=== PATIENT | female | born 1955 ===

== ENCOUNTER 2019-04-26 14:31 | Inpatient (IN) | payer BC ==
[2019-04-26] MEDS ORDERED: Sodium Chloride 0.9% 1,000 ML IV ONE (14:53)
[2019-04-26] MEDS ORDERED: Sodium Chloride 0.9% 10 ML Syringe FLUSH PRN (14:53)
[2019-04-26] MEDS ORDERED: Sodium Chloride 0.9% 2.5 ML Syringe FLUSH PRN (14:53)
[2019-04-26 15:47] LABS: BLOOD UREA NITROGEN,BUN 16 mg/dL (7.0-18.0); CARBON DIOXIDE,CO2 29.5 mmol/L (21.0-32.0); CHLORIDE,CL 98 mmol/L (98-107); GLUCOSE RANDOM 104 mg/dL (74-106); LIPASE 88 U/L (73-393); POTASSIUM,K 3.1 mmol/L (3.5-5.1); SODIUM,NA 137 mmol/L (136-145)
--- NOTE | 2019-04-26 16:10 | EDM.PDOC ---
ED HPI GENERAL MEDICAL PROBLEM - General Chief Complaint: Abdominal Pain Stated Complaint: ABDOMINAL PAIN Time Seen by Provider: 04/26/19 14:52 Source of Information: Reports: Patient History Limitations: Reports: No Limitations - History of Present Illness Onset Date: 04/20/19 Duration: Getting Worse Location: Reports: Abdomen Quality: Reports: Ache, Dull Severity: Moderate Improves with: Reports: None Worsens with: Reports: Eating Associated Symptoms: Reports: Loss of Appetite, Malaise, Nausea/Vomiting. Denies: Fever/Chills - Related Data Allergies Allergy/AdvReac Type Severity Reaction Status Date / Time metals Allergy Rash Uncoded 04/26/19 14:42 Home Meds: Home Meds Aspirin 1 tab PO DAILY 04/26/19 [History] Clobetasol [Clobetasol 0.05%] 1 dose TOP ASDIRECTED PRN 04/26/19 [History] Losartan/Hydrochlorothiazide [Losartan-HCTZ 50-12.5 MG] 1 tab PO DAILY 04/26/19 [History] Meloxicam 1 tab PO DAILY 04/26/19 [History] Rosuvastatin [Crestor] 10 mg PO DAILY 04/26/19 [History] cloNIDine HCl [Catapres] 1 tab PO BID 04/26/19 [History] Past Medical History Musculoskeletal History: Reports: Arthritis Neurological History: Reports: CVA Other Neuro History: TIA x9. head bleed - Infectious Disease History Infectious Disease History: Reports: Chicken Pox - Past Surgical History Cardiovascular Surgical History: Reports: Other (See Below) Other Cardiovascular Surgeries/Procedures: carotid cleanout Neurological Surgical History: Reports: C-Spine ED ROS GENERAL - Review of Systems Review Of Systems: See Below Constitutional: Reports: Chills, Decreased Appetite. Denies: Fever, Weakness Respiratory: Reports: No Symptoms Cardiovascular: Reports: No Symptoms Endocrine: Reports: No Symptoms GI/Abdominal: Reports: Abdominal Pain, Diarrhea, Decreased Appetite, Nausea. Denies: Black Stool, Bloody Stool, Vomiting : Reports: No Symptoms Musculoskeletal: Reports: No Symptoms Skin: Reports: No Symptoms. Denies: Jaundice Neurological: Reports: No Symptoms Psychiatric: Reports: No Symptoms ED EXAM, GI/ABD - Physical Exam Exam: See Below Text/Narrative:: Exam: See Below Exam Limited By: No Limitations Head: Atraumatic Neck: Normal Inspection. No: Carotid Bruit, Lymphadenopathy (R) Respiratory/Chest: No Respiratory Distress, Lungs Clear, Normal Breath Sounds, No Accessory Muscle Use. No: Chest Non-Tender Cardiovascular: Normal Peripheral Pulses, Regular Rate, Rhythm, No Edema, No JVD GI/Abdominal: Normal Bowel Sounds, patient is currently nontender without masses. No guarding or rebound appreciated. Back Exam: Normal Inspection. No: CVA Tenderness (R) Extremities: Normal Inspection. No: No Pedal Edema Neurological: Alert, Oriented, Normal Cognition Psychiatric: Normal Affect Skin Exam: Warm Lymphatic: No Adenopathy Course - Vital Signs Last Recorded V/S: Last Vital Signs Temp 35.7 C 04/26/19 14:36 Pulse 109 H 04/26/19 14:36 Resp 16 04/26/19 14:36 BP 147/79 H 04/26/19 14:36 Pulse Ox 99 04/26/19 14:36 - Orders/Labs/Meds Orders: Active Orders 24 hr Category Date Time Status Piperacillin/Tazobactam [Piperacil-Tazobact] 3.375 gm Med 04/26/19 17:02 Active Sodium Chloride 0.9% [Normal Saline] 50 ml IV ONETIME Sodium Chloride 0.9% [Normal Saline] 1,000 ml Med 04/26/19 16:15 Active IV ASDIRECTED Sodium Chloride 0.9% [Saline Flush] Med 04/26/19 14:53 Active 10 ml FLUSH ASDIRECTED PRN Sodium Chloride 0.9% [Saline Flush] Med 04/26/19 14:53 Active 2.5 ml FLUSH ASDIRECTED PRN Saline Lock Insert [OM.PC] Stat Oth 04/26/19 14:53 Ordered Medication Orders Sodium Chloride (Normal Saline) 1,000 mls @ 500 mls/hr IV ASDIRECTED SHADI Piperacillin Sod/Tazobactam (Sod 3.375 gm/ Sodium Chloride) 50 mls @ 100 mls/ hr IV ONETIME ONE Stop: 04/26/19 17:31 Sodium Chloride (Saline Flush) 10 ml FLUSH ASDIRECTED PRN PRN Reason: Keep Vein Open Sodium Chloride (Saline Flush) 2.5 ml FLUSH ASDIRECTED PRN PRN Reason: Keep Vein Open Labs: Laboratory Tests 04/26/19 04/26/19 04/26/19 Range/Units 15:00 15:15 15:15 WBC 20.21 H (4.0-11.0) K/uL RBC 5.07 (4.30-5.90) M/uL Hgb 16.6 H (12.0-16.0) g/dL Hct 47.5 H (36.0-46.0) % MCV 93.7 (80.0-98.0) fL MCH 32.7 H (27.0-32.0) pg MCHC 34.9 (31.0-37.0) g/dL RDW Std Deviation 45.2 (28.0-62.0) fl RDW Coeff of [place] 13 (11.0-15.0) % Plt Count 226 (150-400) K/uL MPV 11.00 (7.40-12.00) fL Neut % (Auto) 83.2 H (48.0-80.0) % Lymph % (Auto) 9.9 L (16.0-40.0) % [place] % (Auto) 6.2 (0.0-15.0) % Eos % (Auto) 0.6 (0.0-7.0) % Baso % (Auto) 0.1 (0.0-1.5) % Neut # (Auto) 16.8 H (1.4-5.7) K/uL Lymph # (Auto) 2.0 (0.6-2.4) K/uL [place] # (Auto) 1.3 H (0.0-0.8) K/uL Eos # (Auto) 0.1 (0.0-0.7) K/uL Baso # (Auto) 0.0 (0.0-0.1) K/uL Nucleated RBC % 0.0 /100WBC Nucleated RBCs # 0 K/uL Sodium 137 (136-145) mmol/L Potassium 3.1 L (3.5-5.1) mmol/L Chloride 98 (98-107) mmol/L Carbon Dioxide 29.5 (21.0-32.0) mmol/L BUN 16 (7.0-18.0) mg/dL Creatinine 0.8 (0.6-1.0) mg/dL Est Cr Clr Drug Dosing 62.96 mL/min Estimated GFR (MDRD) > 60.0 ml/min Glucose 104 (74-106) mg/dL Calcium 9.4 (8.5-10.1) mg/dL Total Bilirubin 0.7 (0.2-1.0) mg/dL AST 12 L (15-37) IU/L ALT 28 (14-63) IU/L Alkaline Phosphatase 118 H (46-116) U/L Total Protein 7.6 (6.4-8.2) g/dL Albumin 3.2 L (3.4-5.0) g/dL Globulin 4.4 H (2.6-4.0) g/dL Albumin/Globulin Ratio 0.7 L (0.9-1.6) Lipase 88 (73-393) U/L Urine Color DARK YELLOW Urine Appearance SLT CLOUDY Urine pH 6.0 (5.0-8.0) Ur Specific [place] 1.025 (1.001-1.035) Urine Protein NEGATIVE (NEGATIVE) mg/dL Urine Glucose (UA) NEGATIVE (NEGATIVE) mg/dL Urine Ketones 40 H (NEGATIVE) mg/dL Urine Occult Blood LARGE H (NEGATIVE) Urine Nitrite NEGATIVE (NEGATIVE) Urine Bilirubin MODERATE H (NEGATIVE) Urine Ictotest NEGATIVE Urine Urobilinogen 1.0 (<2.0) EU/dL Ur Leukocyte Esterase TRACE H (NEGATIVE) Urine RBC 8-10 (0-2/HPF) Urine WBC 10-13 (0-5/HPF) Ur Epithelial Cells MODERATE (NONE-FEW) Urine Bacteria FEW (NEGATIVE) Urine Mucus LIGHT (NONE-MOD) Meds: Medications Generic Name Dose Route Start Last Admin Trade Name Freq PRN Reason Stop Dose Admin Sodium Chloride 1,000 mls @ 500 mls/hr 04/26/19 16:15 Normal Saline IV ASDIRECTED SHADI Piperacillin Sod/Tazobactam 50 mls @ 100 mls/hr 04/26/19 17:02 Sod 3.375 gm/ Sodium Chloride IV 04/26/19 17:31 ONETIME ONE Sodium Chloride 10 ml 04/26/19 14:53 Saline Flush FLUSH ASDIRECTED PRN Keep Vein Open Sodium Chloride 2.5 ml 04/26/19 14:53 Saline Flush FLUSH ASDIRECTED PRN Keep Vein Open Discontinued Medications Generic Name Dose Route Start Last Admin Trade Name Freq PRN Reason Stop Dose Admin Sodium Chloride 1,000 mls @ 999 mls/hr 04/26/19 14:53 12/24/19 15:23 Normal Saline IV 04/26/19 15:53 999 mls/hr BOLUS ONE Administration Iopamidol 100 ml 04/26/19 16:14 04/26/19 16:15 Isovue Multipack-370 (76%) IVPUSH 04/26/19 16:15 100 ml ONETIME ONE Administration Departure - Departure Time of Disposition: 17:21 Disposition: Admitted As Inpatient 67 Condition: Fair Clinical Impression: Diverticulitis of both large and small intestine with perforation - Discharge Information Instructions: Diverticulitis Referrals: Neva Prakash NP [Primary Care Provider] - Additional Instructions: Patient has been started on Zosyn. She has been seen by Dr. Bennett and will be admitted to the hospital at this time for her ruptured diverticulum Sepsis Event Note - Evaluation Sepsis Screening Result: No Definite Risk - Focused Exam Vital Signs: Vital Signs Temp Pulse Resp BP Pulse Ox 04/26/19 14:36 35.7 C 109 H 16 147/79 H 99 Date Exam was Performed: 04/26/19 Time Exam was Performed: 17:20 - My Orders Last 24 Hours: My Active Orders 04/26/19 14:53 Sodium Chloride 0.9% [Saline Flush] 10 ml FLUSH ASDIRECTED PRN Sodium Chloride 0.9% [Saline Flush] 2.5 ml FLUSH ASDIRECTED PRN Saline Lock Insert [OM.PC] Stat 04/26/19 16:15 Sodium Chloride 0.9% [Normal Saline] 1,000 ml IV ASDIRECTED 04/26/19 17:02 Piperacillin/Tazobactam [Piperacil-Tazobact] 3.375 gm Sodium Chloride 0.9% [ Normal Saline] 50 ml IV ONETIME - Assessment/Plan Last 24 Hours: My Active Orders 04/26/19 14:53 Sodium Chloride 0.9% [Saline Flush] 10 ml FLUSH ASDIRECTED PRN Sodium Chloride 0.9% [Saline Flush] 2.5 ml FLUSH ASDIRECTED PRN Saline Lock Insert [OM.PC] Stat 04/26/19 16:15 Sodium Chloride 0.9% [Normal Saline] 1,000 ml IV ASDIRECTED 04/26/19 17:02 Piperacillin/Tazobactam [Piperacil-Tazobact] 3.375 gm Sodium Chloride 0.9% [ Normal Saline] 50 ml IV ONETIME
[2019-04-26] MEDS ORDERED: Iopamidol 755 MG/ML 200 ML Multipack Bottle IVPUSH ONE (16:14)
[2019-04-26] MEDS ORDERED: Sodium Chloride 0.9% 1,000 ML IV SCH (16:15)
--- NOTE | 2019-04-26 16:45 | CT ---
CT abdomen and pelvis Technique: Multiple axial sections were obtained from above the dome of the diaphragm inferiorly through the pubic symphysis. Intravenous contrast was utilized. No oral contrast has been given. Comparison: No prior abdominal imaging is available. Findings: Extraluminal air is identified within the pelvis with surrounding inflammatory change. Findings are felt compatible with ruptured diverticulitis. No abscess is seen at this time but patient is at risk for future development of abscess. Other findings: Visualized lung bases show nothing acute. Liver shows no focal abnormality. Spleen appears within normal limits. Soft tissue thickening is identified within the distal esophagus most likely relating to chronic reflux esophagitis. Adrenal glands show no nodule. Kidneys show symmetric contrast enhancement without hydronephrosis or mass. Aorta shows no aneurysm with atherosclerotic change. Small retroperitoneal lymph nodes are seen believed to be within normal limits. Pancreas appears within normal limits. Gallbladder shows no calcified gallstones. No mesenteric abnormalities are seen. No pelvic mass or adenopathy is seen. Appendix is seen which is normal in size. Bone window settings were reviewed. Disc space narrowing is noted at L5-S1 with vacuum phenomena. Degenerative apophyseal change is noted within the lower lumbar spine. Mild spondylolisthesis at L5-S1 due to degenerative apophyseal change measuring 6 mm. Impression: 1. Findings compatible with diverticulitis within the pelvis. Extraluminal air is seen compatible with ruptured diverticula. No findings of abscess are seen at this time but patient is at risk for future development of abscess. 2. Soft tissue thickening within the distal esophagus compatible with chronic reflux esophagitis. 3. Other findings believed to be incidental as noted above. Diagnostic code #3 This report was dictated in [place] Standard Time
[2019-04-26] MEDS ORDERED: Piperacillin/Tazobactam 3.375 GM in Sodium Chloride 0.9% 50 ML IV ONE (17:02)
--- NOTE | 2019-04-26 19:42 | CONS ---
DATE OF CONSULTATION: DATE OF : 1955 PRIMARY CARE PHYSICIAN: Neva Prakash NP REASON FOR CONSULTATION: Consult from Dr. Murillo, the emergency room provider. Concerning question is ruptured diverticulitis. HISTORY OF PRESENT ILLNESS: The patient is a 63-year-old obese lady and complained of a 7-day history of gradual onset of abdominal pain. At times, it can be as bad as 8. Today, seen in emergency room, the patient denied absolutely whatsoever, there is no pain. CAT scan shows free lumen air and concerned with ruptured diverticulitis. Again, the patient denied any pain whatsoever now. PAST SURGICAL HISTORY: Normal vaginal delivery x3 and some kind of bead bleed done 4 years ago. The patient also had left carotid endarterectomy done 1 year ago. ALLERGIES: Please refer to nursing note for details. MEDICATIONS: Please refer to nursing note for details. FAMILY HISTORY: Noncontributory. SOCIAL HISTORY: The patient not a much alcohol drinker, but everyday smoker. PHYSICAL EXAMINATION: GENERAL: A very pleasant lady, smiled to the doctor, freely moving in the stretcher and getting in and out of bed and denied any pain whatsoever. VITAL SIGNS: Temperature is 98.5. HEENT: Normocephalic, atraumatic. Sclerae are anicteric. LUNGS: Clear to auscultation. HEART: Regular rate and rhythm. ABDOMEN: Soft, nondistended. No pulsating tender midline abdominal structure. No surgical scar. No hernia. LABORATORY DATA: Upon consultation, white count 20, H and H are 17 and 48, and platelets are 226. Sodium is 137, potassium is 3.1, BUN 16, creatinine 0.8. Lipase is 88. Urine is dark yellow and with a large amount of occult blood, rbc's 8 to 10, white cells 10 to 15. CAT scan shows consistent with ruptured diverticulitis. IMPRESSION: Microperforation of diverticulitis. We will admit for inpatient, put on antibiotic, put on pain medication, and n.p.o., ice chip only. If patient does not respond to conservative management, we will need to have an urgent Charles procedure. The patient will have to carry a colostomy for about 6 to 9 months. The patient aware of that. We will continue serial abdominal exam, antibiotic, n.p.o. conservative management. LIANS / MODL /[id number] MTDD
[2019-04-26] MEDS: Lactated Ringers 1,000 ML IV SCH (20:16)
[2019-04-26] MEDS: Levofloxacin/Dextrose 5%-Water 750 MG in Premix Bag 1 BAG IV SCH (20:20)
[2019-04-26] MEDS: Ondansetron 4 MG/2 ML SDV IVPUSH SCH (20:20)
[2019-04-26] MEDS: Acetaminophen 325 MG Tab PO PRN (21:35)
[2019-04-26] MEDS: Ketorolac 15 MG/ML SDV IVPUSH PRN (22:40)
[2019-04-26] MEDS: metroNIDAZOLE/Normal Saline 500 MG in Premix Bag 1 BAG IV SCH (23:28)
[2019-04-27] MEDS: Ondansetron 4 MG/2 ML SDV IVPUSH SCH ×3 (03:18→18:20)
[2019-04-27] MEDS: metroNIDAZOLE/Normal Saline 500 MG in Premix Bag 1 BAG IV SCH ×4 (05:08→23:22)
[2019-04-27] MEDS: Ketorolac 15 MG/ML SDV IVPUSH PRN (06:44)
[2019-04-27 06:46] LABS: BLOOD UREA NITROGEN,BUN 9 mg/dL (7.0-18.0); CARBON DIOXIDE,CO2 25.2 mmol/L (21.0-32.0); CHLORIDE,CL 105 mmol/L (98-107); GLUCOSE RANDOM 101 mg/dL (74-106); POTASSIUM,K 3.5 mmol/L (3.5-5.1); SODIUM,NA 140 mmol/L (136-145)
[2019-04-27] MEDS: Pantoprazole 40 MG in Sodium Chloride 0.9% 10 ML IV SCH (09:06)
[2019-04-27] MEDS: Lactated Ringers 1,000 ML IV SCH ×2 (09:26→18:56)
--- NOTE | 2019-04-27 11:21 | PCM.SURGPN ---
- General Info Date of Service: 04/27/19 Functional Status: Reports: Pain Controlled (no pain at all; hungry) - Patient Data Vitals - Most Recent: Last Vital Signs Temp 97.6 F 04/27/19 04:00 Pulse 83 04/27/19 04:00 Resp 17 04/27/19 04:00 BP 114/53 L 04/27/19 04:00 Pulse Ox 98 04/27/19 04:00 Weight - Most Recent: 188 lb 7.924 oz I&O - Last 24 Hours: Intake & Output 04/26/19 04/27/19 04/27/19 22:59 06:59 14:59 Intake Total 830 Output Total 600 Balance 230 Lab Results Last 24 Hrs: Laboratory Results - last 24 hr 04/26/19 04/26/19 04/26/19 Range/Units 15:00 15:15 15:15 WBC 20.21 H (4.0-11.0) K/uL RBC 5.07 (4.30-5.90) M/uL Hgb 16.6 H (12.0-16.0) g/dL Hct 47.5 H (36.0-46.0) % MCV 93.7 (80.0-98.0) fL MCH 32.7 H (27.0-32.0) pg MCHC 34.9 (31.0-37.0) g/dL RDW Std Deviation 45.2 (28.0-62.0) fl RDW Coeff of [place] 13 (11.0-15.0) % Plt Count 226 (150-400) K/uL MPV 11.00 (7.40-12.00) fL Neut % (Auto) 83.2 H (48.0-80.0) % Lymph % (Auto) 9.9 L (16.0-40.0) % [place] % (Auto) 6.2 (0.0-15.0) % Eos % (Auto) 0.6 (0.0-7.0) % Baso % (Auto) 0.1 (0.0-1.5) % Neut # (Auto) 16.8 H (1.4-5.7) K/uL Lymph # (Auto) 2.0 (0.6-2.4) K/uL [place] # (Auto) 1.3 H (0.0-0.8) K/uL Eos # (Auto) 0.1 (0.0-0.7) K/uL Baso # (Auto) 0.0 (0.0-0.1) K/uL Nucleated RBC % 0.0 /100WBC Nucleated RBCs # 0 K/uL Sodium 137 (136-145) mmol/L Potassium 3.1 L (3.5-5.1) mmol/L Chloride 98 (98-107) mmol/L Carbon Dioxide 29.5 (21.0-32.0) mmol/L BUN 16 (7.0-18.0) mg/dL Creatinine 0.8 (0.6-1.0) mg/dL Est Cr Clr Drug Dosing 62.96 mL/min Estimated GFR (MDRD) > 60.0 ml/min Glucose 104 (74-106) mg/dL Calcium 9.4 (8.5-10.1) mg/dL Total Bilirubin 0.7 (0.2-1.0) mg/dL AST 12 L (15-37) IU/L ALT 28 (14-63) IU/L Alkaline Phosphatase 118 H (46-116) U/L Total Protein 7.6 (6.4-8.2) g/dL Albumin 3.2 L (3.4-5.0) g/dL Globulin 4.4 H (2.6-4.0) g/dL Albumin/Globulin Ratio 0.7 L (0.9-1.6) Lipase 88 (73-393) U/L Urine Color DARK YELLOW Urine Appearance SLT CLOUDY Urine pH 6.0 (5.0-8.0) Ur Specific [place] 1.025 (1.001-1.035) Urine Protein NEGATIVE (NEGATIVE) mg/dL Urine Glucose (UA) NEGATIVE (NEGATIVE) mg/dL Urine Ketones 40 H (NEGATIVE) mg/dL Urine Occult Blood LARGE H (NEGATIVE) Urine Nitrite NEGATIVE (NEGATIVE) Urine Bilirubin MODERATE H (NEGATIVE) Urine Ictotest NEGATIVE Urine Urobilinogen 1.0 (<2.0) EU/dL Ur Leukocyte Esterase TRACE H (NEGATIVE) Urine RBC 8-10 (0-2/HPF) Urine WBC 10-13 (0-5/HPF) Ur Epithelial Cells MODERATE (NONE-FEW) Urine Bacteria FEW (NEGATIVE) Urine Mucus LIGHT (NONE-MOD) 12/25/19 12/25/19 Range/Units 06:15 06:15 WBC 12.98 H (4.0-11.0) K/uL RBC 4.35 (4.30-5.90) M/uL Hgb 14.0 (12.0-16.0) g/dL Hct 41.1 (36.0-46.0) % MCV 94.5 (80.0-98.0) fL MCH 32.2 H (27.0-32.0) pg MCHC 34.1 (31.0-37.0) g/dL RDW Std Deviation 45.6 (28.0-62.0) fl RDW Coeff of [place] 13 (11.0-15.0) % Plt Count 159 (150-400) K/uL MPV 10.80 (7.40-12.00) fL Neut % (Auto) 82.4 H (48.0-80.0) % Lymph % (Auto) 9.2 L (16.0-40.0) % [place] % (Auto) 7.6 (0.0-15.0) % Eos % (Auto) 0.7 (0.0-7.0) % Baso % (Auto) 0.1 (0.0-1.5) % Neut # (Auto) 10.7 H (1.4-5.7) K/uL Lymph # (Auto) 1.2 (0.6-2.4) K/uL [place] # (Auto) 1.0 H (0.0-0.8) K/uL Eos # (Auto) 0.1 (0.0-0.7) K/uL Baso # (Auto) 0.0 (0.0-0.1) K/uL Nucleated RBC % 0.0 /100WBC Nucleated RBCs # 0 K/uL Sodium 140 (136-145) mmol/L Potassium 3.5 (3.5-5.1) mmol/L Chloride 105 (98-107) mmol/L Carbon Dioxide 25.2 (21.0-32.0) mmol/L BUN 9 (7.0-18.0) mg/dL Creatinine 0.7 (0.6-1.0) mg/dL Est Cr Clr Drug Dosing 71.96 mL/min Estimated GFR (MDRD) > 60.0 ml/min Glucose 101 (74-106) mg/dL Calcium 8.2 L (8.5-10.1) mg/dL Total Bilirubin 0.6 (0.2-1.0) mg/dL AST 14 L (15-37) IU/L ALT 19 (14-63) IU/L Alkaline Phosphatase 86 (46-116) U/L Total Protein 5.8 L (6.4-8.2) g/dL Albumin 2.2 L (3.4-5.0) g/dL Globulin 3.6 (2.6-4.0) g/dL Albumin/Globulin Ratio 0.6 L (0.9-1.6) Lipase (73-393) U/L Urine Color Urine Appearance Urine pH (5.0-8.0) Ur Specific [place] (1.001-1.035) Urine Protein (NEGATIVE) mg/dL Urine Glucose (UA) (NEGATIVE) mg/dL Urine Ketones (NEGATIVE) mg/dL Urine Occult Blood (NEGATIVE) Urine Nitrite (NEGATIVE) Urine Bilirubin (NEGATIVE) Urine Ictotest Urine Urobilinogen (<2.0) EU/dL Ur Leukocyte Esterase (NEGATIVE) Urine RBC (0-2/HPF) Urine WBC (0-5/HPF) Ur Epithelial Cells (NONE-FEW) Urine Bacteria (NEGATIVE) Urine Mucus (NONE-MOD) Med Orders - Current: Current Medications Acetaminophen (Tylenol) 325 mg PO Q6H PRN PRN Reason: Pain Last Admin: 04/26/19 21:35 Dose: 325 mg Lactated Ringer's (Ringers, Lactated) 1,000 mls @ 125 mls/hr IV ASDIRECTED [facility] Last Admin: 04/27/19 09:26 Dose: 125 mls/hr Levofloxacin/Dextrose 750 mg/ (Premix) 150 mls @ 100 mls/hr IV Q24H [facility] Last Admin: 04/26/19 20:20 Dose: 100 mls/hr Metronidazole 500 mg/ Premix 100 mls @ 100 mls/hr IV QID [facility] Last Admin: 04/27/19 05:08 Dose: 100 mls/hr Pantoprazole Sodium 40 mg/ (Sodium Chloride) 10 mls @ 300 mls/hr IV DAILY [facility] Last Admin: 04/27/19 09:06 Dose: 300 mls/hr Ketorolac Tromethamine (Toradol) 30 mg IVPUSH Q8H PRN PRN Reason: Pain Stop: 05/01/19 19:11 Last Admin: 04/27/19 06:44 Dose: 30 mg Ondansetron HCl (Zofran) 4 mg IVPUSH Q8H [facility] Last Admin: 04/27/19 03:18 Dose: Not Given Sodium Chloride (Saline Flush) 10 ml FLUSH ASDIRECTED PRN PRN Reason: Keep Vein Open Sodium Chloride (Saline Flush) 2.5 ml FLUSH ASDIRECTED PRN PRN Reason: Keep Vein Open Discontinued Medications Sodium Chloride (Normal Saline) 1,000 mls @ 999 mls/hr IV BOLUS ONE Stop: 04/26/19 15:53 Last Admin: 04/26/19 15:23 Dose: 999 mls/hr Sodium Chloride (Normal Saline) 1,000 mls @ 500 mls/hr IV ASDIRECTED SHADI Last Admin: 04/26/19 17:29 Dose: 500 mls/hr Piperacillin Sod/Tazobactam (Sod 3.375 gm/ Sodium Chloride) 50 mls @ 100 mls/ hr IV ONETIME ONE Stop: 04/26/19 17:31 Last Admin: 04/26/19 17:42 Dose: 100 mls/hr Iopamidol (Isovue Multipack-370 (76%)) 100 ml IVPUSH ONETIME ONE Stop: 04/26/19 16:15 Last Admin: 04/26/19 16:15 Dose: 100 ml - Exam General: Alert, Oriented Neck: Supple GI/Abdominal Exam: Normal Bowel Sounds, Soft, Non-Tender, No Distention (wbc 12.9 on iv abx) Sepsis Event Note - Evaluation Sepsis Screening Result: No Definite Risk - Focused Exam Vital Signs: Vital Signs Temp Pulse Resp BP Pulse Ox 04/27/19 04:00 97.6 F 83 17 114/53 L 98 Date Exam was Performed: 04/27/19 Time Exam was Performed: 11:20 - Problem List Review Problem List Initiated/Reviewed/Updated: Yes - My Orders Last 24 Hours: Active Orders 24 hr Category Date Time Status Admission Status [Patient Status] [ADT] Routine ADT 04/26/19 19:04 Active Admission Status [Patient Status] [ADT] Stat ADT 04/26/19 18:20 Active Communication Order [RC] ROUTINE Care 04/26/19 19:09 Active Communication Order [RC] ROUTINE Care 04/26/19 19:10 Active Acetaminophen [Tylenol] Med 04/26/19 19:08 Active 325 mg PO Q6H PRN Ketorolac [Toradol] Med 04/26/19 19:11 Active 30 mg IVPUSH Q8H PRN Lactated Ringers [Ringers, Lactated] 1,000 ml Med 04/26/19 19:15 Active IV ASDIRECTED Levofloxacin/Dextrose 5%-Water [Levaquin in D5W 750 MG/ Med 04/26/19 20:00 Active 150 ML] 750 mg Premix Bag 1 bag IV Q24H Ondansetron [Zofran] Med 04/26/19 19:15 Active 4 mg IVPUSH Q8H Pantoprazole [ProTONIX IV] 40 mg Med 04/27/19 09:00 Active Sodium Chloride 0.9% [Normal Saline] 10 ml IV DAILY Sodium Chloride 0.9% [Saline Flush] Med 04/26/19 14:53 Active 10 ml FLUSH ASDIRECTED PRN Sodium Chloride 0.9% [Saline Flush] Med 04/26/19 14:53 Active 2.5 ml FLUSH ASDIRECTED PRN metroNIDAZOLE/Normal Saline [Flagyl 500 MG in NS 100 ML Med 04/27/19 00:00 Active ] 500 mg Premix Bag 1 bag IV QID Saline Lock Insert [OM.PC] Stat Oth 04/26/19 14:53 Ordered Medication Orders Acetaminophen (Tylenol) 325 mg PO Q6H PRN PRN Reason: Pain Last Admin: 04/26/19 21:35 Dose: 325 mg Lactated Ringer's (Ringers, Lactated) 1,000 mls @ 125 mls/hr IV ASDIRECTED SHADI Last Admin: 04/27/19 09:26 Dose: 125 mls/hr Infusion: 04/27/19 04:16 Dose: 125 mls/hr Admin: 04/26/19 20:16 Dose: 125 mls/hr Levofloxacin/Dextrose 750 mg/ (Premix) 150 mls @ 100 mls/hr IV Q24H [facility] Last Admin: 04/26/19 20:20 Dose: 100 mls/hr Metronidazole 500 mg/ Premix 100 mls @ 100 mls/hr IV QID [facility] Last Admin: 04/27/19 05:08 Dose: 100 mls/hr Infusion: 04/27/19 00:28 Dose: 100 mls/hr Admin: 04/26/19 23:28 Dose: 100 mls/hr Pantoprazole Sodium 40 mg/ (Sodium Chloride) 10 mls @ 300 mls/hr IV DAILY [facility] Last Admin: 04/27/19 09:06 Dose: 300 mls/hr Ketorolac Tromethamine (Toradol) 30 mg IVPUSH Q8H PRN PRN Reason: Pain Stop: 05/01/19 19:11 Last Admin: 04/27/19 06:44 Dose: 30 mg Admin: 04/26/19 22:40 Dose: 30 mg Ondansetron HCl (Zofran) 4 mg IVPUSH Q8H [facility] Last Admin: 04/27/19 03:18 Dose: Not Given Admin: 04/26/19 20:20 Dose: 4 mg Sodium Chloride (Saline Flush) 10 ml FLUSH ASDIRECTED PRN PRN Reason: Keep Vein Open Sodium Chloride (Saline Flush) 2.5 ml FLUSH ASDIRECTED PRN PRN Reason: Keep Vein Open - Assessment Assessment (Free Text/Narrative):: responded very well to treatment; continue abx; possible po diet in the morning , and home on po abx X 3 wks, then colonoscopy 3 mos - Plan Plan (Free Text/Narrative):: responded very well to treatment; continue abx; possible po diet in the morning , and home on po abx X 3 wks, then colonoscopy 3 mos
[2019-04-27] MEDS ORDERED: cloNIDine 0.1 MG Tab PO SCH (15:45)
[2019-04-27] MEDS ORDERED: Rosuvastatin 10 MG Tab PO SCH (15:45)
[2019-04-27] MEDS ORDERED: CLOBETASOL TOP PRN (15:45)
[2019-04-27] MEDS ORDERED: Hydrochlorothiazide/Losartan 12.5-50 mg Tab PO SCH (15:45)
[2019-04-27] MEDS ORDERED: Aspirin 81 MG Tab.Chew PO SCH (15:45)
[2019-04-27] MEDS ORDERED: Meloxicam 7.5 MG Tab PO SCH (16:00)
[2019-04-27] MEDS: Meloxicam 7.5 MG Tab PO SCH (17:05)
[2019-04-27] MEDS: Rosuvastatin 10 MG Tab PO SCH (17:05)
[2019-04-27] MEDS: Hydrochlorothiazide/Losartan 12.5-50 mg Tab PO SCH (17:06)
[2019-04-27] MEDS: Aspirin 81 MG Tab.Chew PO SCH (17:20)
[2019-04-27] MEDS ORDERED: cloNIDine 0.1 MG Tab PO ONE (18:00)
[2019-04-27] MEDS: Acetaminophen 325 MG Tab PO PRN (19:00)
[2019-04-27] MEDS: Levofloxacin/Dextrose 5%-Water 750 MG in Premix Bag 1 BAG IV SCH (19:53)
[2019-04-28] MEDS: Ondansetron 4 MG/2 ML SDV IVPUSH SCH ×2 (03:01→11:59)
[2019-04-28] MEDS: Lactated Ringers 1,000 ML IV SCH (05:40)
[2019-04-28] MEDS: metroNIDAZOLE/Normal Saline 500 MG in Premix Bag 1 BAG IV SCH ×2 (05:40→11:59)
[2019-04-28] MEDS: Acetaminophen 325 MG Tab PO PRN (05:48)
[2019-04-28 06:39] LABS: BLOOD UREA NITROGEN,BUN 8 mg/dL (7.0-18.0); CARBON DIOXIDE,CO2 27.1 mmol/L (21.0-32.0); CHLORIDE,CL 106 mmol/L (98-107); GLUCOSE RANDOM 82 mg/dL (74-106); POTASSIUM,K 3.5 mmol/L (3.5-5.1); SODIUM,NA 142 mmol/L (136-145)
[2019-04-28] MEDS: Hydrochlorothiazide/Losartan 12.5-50 mg Tab PO SCH (08:55)
[2019-04-28] MEDS: Aspirin 81 MG Tab.Chew PO SCH (08:56)
[2019-04-28] MEDS: Meloxicam 7.5 MG Tab PO SCH (08:57)
[2019-04-28] MEDS ORDERED: cloNIDine 0.1 MG Tab PO SCH (09:00)
[2019-04-28] MEDS: Rosuvastatin 10 MG Tab PO SCH (10:17)
[2019-04-28] MEDS: Pantoprazole 40 MG in Sodium Chloride 0.9% 10 ML IV SCH (11:59)
--- NOTE | 2019-04-28 14:25 | PCM.DCSUM1 ---
Discharge Summary - Hospital Course Free Text/Narrative:: pls refer to admission h/p for details; in summary, pain X 1 wk, seeked help in ED, ct noted for ruptured diverticulum, admitted for further managment; Diagnosis: Stroke: No - Discharge Data Discharge Date: 04/28/19 Discharge Disposition: Home, Self-Care 01 Condition: Stable - Referral to Home Health Date of Face to Face Encounter: 04/28/19 Primary Care Physician: Neva Prakash NP - Patient Summary/Data Hospital Course: pt has very little pain, denied nausea; and well formed stool on day of admission; treated w iv abx/ivf/npo; pt in 2 days, wbc dropped from 22 to 10 upon iv levaquin and flaygl; hd #3, flora full liquid diet; dc home on 3 wk po abx ; colonoscopy 3 mos - Patient Instructions Diet: Full Liquid Diet Diet, Other: full liquid diet X 3 days Activity: No Strenuous Activities Driving: Do Not Drive Showering/Bathing: May Shower Notify Provider of: Fever, Nausea and/or Vomiting - Discharge Plan Prescriptions/Med Rec: Levofloxacin [Levaquin] 750 mg PO DAILY 21 Days #21 tablet metroNIDAZOLE [Flagyl] 500 mg PO QID 21 Days #84 tab Home Medications: Home Meds Aspirin 1 tab PO DAILY 04/26/19 [History] Clobetasol [Clobetasol 0.05%] 1 dose TOP ASDIRECTED PRN 04/26/19 [History] Losartan/Hydrochlorothiazide [Losartan-HCTZ 50-12.5 MG] 1 tab PO DAILY 04/26/19 [History] Meloxicam 1 tab PO DAILY 04/26/19 [History] Rosuvastatin [Crestor] 10 mg PO DAILY 04/26/19 [History] cloNIDine HCl [Catapres] 1 tab PO BID 04/26/19 [History] Levofloxacin [Levaquin] 750 mg PO DAILY 21 Days #21 tablet 04/28/19 [Rx] metroNIDAZOLE [Flagyl] 500 mg PO QID 21 Days #84 tab 04/28/19 [Rx] Patient Handouts: Diverticulitis, Levofloxacin tablets, Full Liquid Diet, Low- Fiber Eating Plan, Metronidazole tablets or capsules Referrals: Neva Prakash NP [Primary Care Provider] - 05/09/19 11:00 am Hunter Crespo MD [Physician] - 08/11/19 9:00 am - Discharge Summary/Plan Comment DC Time >30 min.: Yes - Patient Data Vitals - Most Recent: Last Vital Signs Temp 96.6 F 04/28/19 12:00 Pulse 86 04/28/19 12:00 Resp 18 04/28/19 12:00 BP 118/74 04/28/19 12:00 Pulse Ox 98 04/28/19 12:00 Weight - Most Recent: 187 lb 14.4 oz I&O - Last 24 hours: Intake & Output 04/27/19 04/28/19 04/28/19 22:59 06:59 14:59 Intake Total 310 1140 Output Total 900 1450 Balance -590 -310 Lab Results - Last 24 hrs: Laboratory Results - last 24 hr 04/28/19 04/28/19 Range/Units 05:49 05:49 WBC 9.67 (4.0-11.0) K/uL RBC 4.15 L (4.30-5.90) M/uL Hgb 13.2 (12.0-16.0) g/dL Hct 39.3 (36.0-46.0) % MCV 94.7 (80.0-98.0) fL MCH 31.8 (27.0-32.0) pg MCHC 33.6 (31.0-37.0) g/dL RDW Std Deviation 46.4 (28.0-62.0) fl RDW Coeff of Kirby 13 (11.0-15.0) % Plt Count 169 (150-400) K/uL MPV 10.70 (7.40-12.00) fL Neut % (Auto) 76.4 (48.0-80.0) % Lymph % (Auto) 13.9 L (16.0-40.0) % Kern % (Auto) 8.6 (0.0-15.0) % Eos % (Auto) 0.9 (0.0-7.0) % Baso % (Auto) 0.2 (0.0-1.5) % Neut # (Auto) 7.4 H (1.4-5.7) K/uL Lymph # (Auto) 1.3 (0.6-2.4) K/uL Kern # (Auto) 0.8 (0.0-0.8) K/uL Eos # (Auto) 0.1 (0.0-0.7) K/uL Baso # (Auto) 0.0 (0.0-0.1) K/uL Nucleated RBC % 0.0 /100WBC Nucleated RBCs # 0 K/uL Sodium 142 (136-145) mmol/L Potassium 3.5 (3.5-5.1) mmol/L Chloride 106 (98-107) mmol/L Carbon Dioxide 27.1 (21.0-32.0) mmol/L BUN 8 (7.0-18.0) mg/dL Creatinine 0.7 (0.6-1.0) mg/dL Est Cr Clr Drug Dosing 71.96 mL/min Estimated GFR (MDRD) > 60.0 ml/min Glucose 82 (74-106) mg/dL Calcium 8.7 (8.5-10.1) mg/dL Total Bilirubin 0.5 (0.2-1.0) mg/dL AST 11 L (15-37) IU/L ALT 19 (14-63) IU/L Alkaline Phosphatase 77 (46-116) U/L Total Protein 5.5 L (6.4-8.2) g/dL Albumin 2.1 L (3.4-5.0) g/dL Globulin 3.4 (2.6-4.0) g/dL Albumin/Globulin Ratio 0.6 L (0.9-1.6) Med Orders - Current: Current Medications Discontinued Medications Acetaminophen (Tylenol) 325 mg PO Q6H PRN PRN Reason: Pain Last Admin: 04/28/19 05:48 Dose: 325 mg Aspirin (Aspirin) 81 mg PO DAILY [facility] Last Admin: 04/27/19 17:16 Dose: Not Given Aspirin (Aspirin) 81 mg PO DAILY [facility] Last Admin: 04/28/19 08:56 Dose: 81 mg Clonidine HCl (Catapres) 0.1 mg PO BID [facility] Last Admin: 04/27/19 17:17 Dose: Not Given Clonidine HCl (Catapres) 0.1 mg PO ONETIME ONE Stop: 04/27/19 18:01 Last Admin: 04/27/19 17:06 Dose: 0.1 mg Clonidine HCl (Catapres) 0.1 mg PO BID [facility] Last Admin: 04/28/19 08:56 Dose: 0.1 mg HCTZ/Losartan Potassium (Hyzaar 50-12.5 Mg) 1 tab PO DAILY [facility] Last Admin: 04/27/19 17:18 Dose: Not Given HCTZ/Losartan Potassium (Hyzaar 50-12.5 Mg) 1 tab PO DAILY [facility] Last Admin: 04/28/19 08:55 Dose: 1 tab Sodium Chloride (Normal Saline) 1,000 mls @ 999 mls/hr IV BOLUS ONE Stop: 04/26/19 15:53 Last Admin: 04/26/19 15:23 Dose: 999 mls/hr Sodium Chloride (Normal Saline) 1,000 mls @ 500 mls/hr IV ASDIRECTED [facility] Last Admin: 04/26/19 17:29 Dose: 500 mls/hr Piperacillin Sod/Tazobactam (Sod 3.375 gm/ Sodium Chloride) 50 mls @ 100 mls/ hr IV ONETIME ONE Stop: 04/26/19 17:31 Last Admin: 04/26/19 17:42 Dose: 100 mls/hr Lactated Ringer's (Ringers, Lactated) 1,000 mls @ 125 mls/hr IV ASDIRECTED [facility] Last Admin: 04/28/19 05:40 Dose: 125 mls/hr Levofloxacin/Dextrose 750 mg/ (Premix) 150 mls @ 100 mls/hr IV Q24H [facility] Last Admin: 04/27/19 19:53 Dose: 100 mls/hr Metronidazole 500 mg/ Premix 100 mls @ 100 mls/hr IV QID [facility] Last Admin: 04/28/19 11:59 Dose: Not Given Pantoprazole Sodium 40 mg/ (Sodium Chloride) 10 mls @ 300 mls/hr IV DAILY [facility] Last Admin: 04/28/19 11:59 Dose: Not Given Iopamidol (Isovue Multipack-370 (76%)) 100 ml IVPUSH ONETIME ONE Stop: 04/26/19 16:15 Last Admin: 04/26/19 16:15 Dose: 100 ml Ketorolac Tromethamine (Toradol) 30 mg IVPUSH Q8H PRN PRN Reason: Pain Stop: 05/01/19 19:11 Last Admin: 04/27/19 06:44 Dose: 30 mg Meloxicam (Mobic) 15 mg PO DAILY [facility] Last Admin: 04/27/19 17:18 Dose: Not Given Meloxicam (Mobic) 15 mg PO DAILY [facility] Last Admin: 04/28/19 08:57 Dose: 15 mg Meloxicam (Mobic) 15 mg PO DAILY [facility] Non-Formulary Medication (Clobetasol) 1 dose TOP ASDIRECTED PRN PRN Reason: skin problems Ondansetron HCl (Zofran) 4 mg IVPUSH Q8H [facility] Last Admin: 04/28/19 11:59 Dose: Not Given Rosuvastatin Calcium (Crestor) 10 mg PO DAILY [facility] Last Admin: 04/27/19 17:18 Dose: Not Given Rosuvastatin Calcium (Crestor) 10 mg PO DAILY [facility] Last Admin: 04/28/19 10:17 Dose: Not Given Rosuvastatin Calcium (Crestor) 10 mg PO BEDTIME [facility] Sodium Chloride (Saline Flush) 10 ml FLUSH ASDIRECTED PRN PRN Reason: Keep Vein Open Sodium Chloride (Saline Flush) 2.5 ml FLUSH ASDIRECTED PRN PRN Reason: Keep Vein Open
[2019-04-28] MEDS ORDERED: Rosuvastatin 10 MG Tab PO SCH (21:00)
[2019-05-02] MEDS ORDERED: Meloxicam 7.5 MG Tab PO SCH
== END 2019-04-28 13:15 | disposition home or self-care (01) | DRG 244 ==
LOC: MW.ED 14:31 → MW.MS 18:24
PROVIDERS: ADMIT Surgery; ATTEND Surgery
DX: K57.40 Diverticulitis of both small and large intestine with perforation and abscess without bleeding (principal); F17.200 Nicotine dependence, unspecified, uncomplicated; M19.90 Unspecified osteoarthritis, unspecified site; Z88.8 Allergy status to other drugs, medicaments and biological substances; Z79.82 Long term (current) use of aspirin; Z79.899 Other long term (current) drug therapy; Z86.73 Personal history of transient ischemic attack (TIA), and cerebral infarction without residual deficits
CPT/HCPCS: 36415; 74177; 74177-26; 80053; 81001; 83690; 85025; A9270-GY; C9113; J1885; J1956; J2405; J2543; J3490; J7030; J7050; J7120; Q9967